=== PATIENT | male | born 1990 | race Two or more races ===

== ENCOUNTER 2022-11-05 09:20 | Emergency (ER) | payer MEDICAID, OTHER ==
[~2022-11-05] VITALS: Ht 152.4 cm; Wt 57.0 kg
[2022-11-05 09:43] VITALS: BP 112/76
[2022-11-05 10:03] LABS: Urine Bacteria NONE SEEN /hpf (None Seen); Urine Blood TRACE /uL (Negative); Urine Mucus FEW (None Seen); Urine Specific Gravity 1.021 (1.001-1.035); Urine WBC 1 /hpf (0 - 3)
[2022-11-05] MEDS ORDERED: SUMAtriptan SUCCINATE 6 MG/0.5 ML VL SC ONE (11:00)
[2022-11-05] MEDS ORDERED: SUMA50TA2 PO (12:41)
== END 2022-11-05 12:50 | disposition home or self-care (01) ==
LOC: ER 09:28
DX: G43.909 Migraine, unspecified, not intractable, without status migrainosus (principal)
CPT/HCPCS: 81001; 96372; 99283; J3030